=== PATIENT | female | born 1945 | race Caucasian/White ===

== ENCOUNTER → 2016-11-25 | Outpatient (REF) | payer MEDICARE ==
[~2016-11-25] MED LIST: /ADVA50050; /TIOT18INH; ACET65TA; ALBU83IN INH; ALTA10CA; ALTA10CA3 PO; AMBI10TA; AMBI5TAB PO; AMLO5TAB2 PO; ASPI81TA85 PO; ATEN25TA; ATEN50TA2 PO; BONIVA; BUDE0.5S6 INH; CEFT500T; CORE25TA; DEBR6.5S4 AU; DOCU10CA PO; HYDR25TA6; HYDR25TAB PO; K-TA10TA2 PO; LEVA500T PO; LEVO500T32 PO; NICO21DI5 TD; POTA10CA2; PRED10TA PO; PRED20TA PO; PRED20TAB PO; PROZ20CA; PROZ20CA11 PO; PULM1SUS INH; RANI15TA PO; ROBITUSSIN; TUSS1CAP5 PO; TYLE167L PO; ZANT150T; ZITH250T
== END ==
LOC: M SFHCCLAY 13:53
PROVIDERS: ATTEND Family Medicine
DX: H10.32 Unspecified acute conjunctivitis, left eye (principal)

== ENCOUNTER 2017-01-28 13:12 | Inpatient (IN) | payer MEDICARE ==
[~2017-01-28] VITALS: Ht 165.1 cm; Wt 44.5 kg
[2017-01-28] MEDS: NICOTINE 21MG/24HR 1 EA TRANSDERMAL TD SCH (09:00)
[2017-01-28] MEDS ORDERED: HYDR25TAB PO (13:26)
[2017-01-28] MEDS ORDERED: ATEN50TA2 PO (13:26)
[2017-01-28] MEDS ORDERED: FLUO40CA PO (13:26)
[2017-01-28] MEDS ORDERED: IPRATROPIUM 0.5MG/ALBUTEROL 2.5MG INH SOL UD 3ML (DUONEB)(J7620) NEB ONE (14:15)
[2017-01-28] MEDS ORDERED: ASPIRIN 81 MG CHEW TABLET PO ONE ×2 (14:15→15:00)
[2017-01-28] MEDS ORDERED: methylPREDNISolone INJ 125 MG/2 ML VIAL (J2930) IV ONE (14:15)
[2017-01-28] MEDS ORDERED: ALBUTEROL SULFATE 2.5 MG/0.5 ML INH NEB SOLN NEB PRN ×2 (14:15→17:00)
[2017-01-28 14:57] LABS: ABG BASE EXCESS 14.2 (-2.0-2.0); ABG HCO3 43.7 MEQ/L (22.0-26.0); ABG PARTIAL PRESSURE O2 88.1 mmHg (75.0-100.0); ABG TOTAL CO2 46.3 MEQ/L (23.0-31.0); ABG pH (ARTERIAL) 7.325 UNITS (7.350-7.450)
[2017-01-28 14:57] LABS: BASO % 0.5 % (0.0-1.0); EOS # 0.2 K/mm3 (0.0-0.50); EOS % 2.3 % (0.0-3.0); LARGE UNSTAINED CELL # 0.1 K/mm3 (0.0-0.4); LYMPH # 0.8 K/mm3 (1.5-4.5); LYMPH % 7.9 % (24.0-44.0); MEAN CORPUSCULAR HEMOGLOBIN 30.2 pg (27.0-33.0); MEAN CORPUSCULAR HGB CONC 32.5 g/dl (32.0-36.5); MONO # 0.5 K/mm3 (0.0-0.8); MONO % 5.7 % (0.0-5.0); NEUTROPHILS # 7.1 K/mm3 (1.8-7.7); NEUTROPHILS % 82.6 % (36.0-66.0); PLATELET COUNT, AUTOMATED 206 k/mm3 (150-450); RED CELL DISTRIBUTION WIDTH 12.1 % (11.5-14.5); WHITE BLOOD COUNT 8.6 K/mm3 (4.0-10.0)
[2017-01-28 14:59] LABS: ABG PARTIAL PRESSURE CO2 85.8 mmHg (35.0-45.0)
[2017-01-28] MEDS ORDERED: IPRASOL4 INH ×2 (15:04→15:05)
[2017-01-28] MEDS ORDERED: BUDE0.5S6 INH (15:04)
[2017-01-28] MEDS ORDERED: LORA-376 PO (15:05)
[2017-01-28] MEDS ORDERED: ALBU83IN INH (15:05)
[2017-01-28 15:29] LABS: ALBUMIN 3.4 GM/DL (3.2-5.2); ALBUMIN/GLOBULIN RATIO 1.17 (1.00-1.93); ALKALINE PHOSPHATASE 85 U/L (45-117); ALT/SGPT 14 U/L (12-78); ANION GAP 7 MEQ/L (8-16); AST/SGOT 21 U/L (15-37); BILIRUBIN,DIRECT < 0.1 MG/DL (0.0-0.2); BILIRUBIN,TOTAL 0.3 MG/DL (0.2-1.0); BLOOD UREA NITROGEN 14 MG/DL (7-18); CALCIUM LEVEL 8.8 MG/DL (8.8-10.2); CARBON DIOXIDE LEVEL 41 MEQ/L (21-32); CHLORIDE LEVEL 89 MEQ/L (98-107); CREATININE FOR GFR 0.43 MG/DL (0.55-1.02); GLOMERULAR FILTRATION RATE > 60.0 (>39); GLUCOSE, FASTING 147 MG/DL (83-110); POTASSIUM SERUM 3.9 MEQ/L (3.5-5.1); SODIUM LEVEL 137 MEQ/L (136-145); TOTAL PROTEIN 6.3 GM/DL (6.4-8.2)
[2017-01-28] MEDS ORDERED: ALBUTEROL SULFATE 2.5 MG/0.5 ML INH NEB SOLN INH PRN (17:45)
[2017-01-28 19:59] VITALS: BP 142/63
[2017-01-28] MEDS: IPRATROPIUM 0.5MG/ALBUTEROL 2.5MG INH SOL UD 3ML (DUONEB)(J7620) INH SCH ×2 (20:00→20:30)
[2017-01-28] MEDS: IPRATROPIUM 0.5MG/ALBUTEROL 2.5MG INH SOL UD 3ML (DUONEB)(J7620) NEB SCH (20:00)
[2017-01-28] MEDS: BUDESONIDE 0.5 MG/2 ML INHALATION SUSPENSION INH SCH (20:30)
[2017-01-28] MEDS: FAMOTIDINE 20 MG TAB PO SCH (21:00)
[2017-01-28] MEDS: methylPREDNISolone INJ 40 MG/1 ML VIAL (J2920) IV SCH (21:23)
[2017-01-29] VITALS: BP 147/66
[2017-01-29 04:00] VITALS: BP 123/58
[2017-01-29 05:33] LABS: BASO % 0.2 % (0.0-1.0); EOS % 0.1 % (0.0-3.0); LARGE UNSTAINED CELL % 0.7 % (0.0-4.0); LYMPH # 0.5 K/mm3 (1.5-4.5); LYMPH % 7.9 % (24.0-44.0); MEAN CORPUSCULAR HEMOGLOBIN 29.5 pg (27.0-33.0); MEAN CORPUSCULAR HGB CONC 32.2 g/dl (32.0-36.5); MEAN CORPUSCULAR VOLUME 91.5 fl (80.0-96.0); MONO # 0.2 K/mm3 (0.0-0.8); MONO % 3.1 % (0.0-5.0); NEUTROPHILS # 5.1 K/mm3 (1.8-7.7); PLATELET COUNT, AUTOMATED 219 k/mm3 (150-450); RED CELL DISTRIBUTION WIDTH 12.1 % (11.5-14.5); WHITE BLOOD COUNT 5.8 K/mm3 (4.0-10.0)
[2017-01-29 05:53] LABS: ALBUMIN 3.4 GM/DL (3.2-5.2); ALBUMIN/GLOBULIN RATIO 1.06 (1.00-1.93); ALKALINE PHOSPHATASE 84 U/L (45-117); ALT/SGPT 17 U/L (12-78); ANION GAP 7 MEQ/L (8-16); AST/SGOT 18 U/L (15-37); BILIRUBIN,TOTAL 0.3 MG/DL (0.2-1.0); BLOOD UREA NITROGEN 18 MG/DL (7-18); CARBON DIOXIDE LEVEL 41 MEQ/L (21-32); CHLORIDE LEVEL 90 MEQ/L (98-107); CREATININE FOR GFR 0.59 MG/DL (0.55-1.02); GLOMERULAR FILTRATION RATE > 60.0 (>39); GLUCOSE, FASTING 144 MG/DL (83-110); MAGNESIUM LEVEL 1.9 MG/DL (1.8-2.4); POTASSIUM SERUM 3.9 MEQ/L (3.5-5.1); SODIUM LEVEL 138 MEQ/L (136-145); TOTAL PROTEIN 6.6 GM/DL (6.4-8.2)
[2017-01-29] MEDS: IPRATROPIUM 0.5MG/ALBUTEROL 2.5MG INH SOL UD 3ML (DUONEB)(J7620) INH SCH ×4 (06:18→19:41)
--- NOTE | 2017-01-29 06:40 | ECGEPIP ---
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
[2017-01-29] MEDS: BUDESONIDE 0.5 MG/2 ML INHALATION SUSPENSION INH SCH ×2 (06:58→19:41)
[2017-01-29] MEDS: IPRATROPIUM 0.5MG/ALBUTEROL 2.5MG INH SOL UD 3ML (DUONEB)(J7620) NEB SCH ×4 (06:58→20:39)
[2017-01-29 07:52] VITALS: BP 151/87
[2017-01-29] MEDS: ASPIRIN 81 MG ENTERIC TAB PO SCH (08:07)
[2017-01-29] MEDS: FAMOTIDINE 20 MG TAB PO SCH ×2 (08:07→21:22)
[2017-01-29] MEDS: FLUoxetine 20 MG CAP PO SCH (08:07)
[2017-01-29] MEDS: ATENOLOL 50 MG TAB PO SCH (08:07)
[2017-01-29] MEDS: methylPREDNISolone INJ 40 MG/1 ML VIAL (J2920) IV SCH ×3 (08:10→21:22)
[2017-01-29] MEDS: NICOTINE 21MG/24HR 1 EA TRANSDERMAL TD SCH (08:10)
[2017-01-29] MEDS: ENOXAPARIN 40 MG/0.4 ML SYRINGE (J1650) SC SCH (08:10)
--- NOTE | 2017-01-29 08:27 | REP ---
Dyspnea and cough. COMPARISON: 04/06/2016 Fibrotic changes are seen in the lung bases, right greater than left. A patchy opacity partially silhouettes out the right heart border and right CP angle. The cardiomediastinal silhouette is unchanged. It is accentuated by technique. The technique utilized in obtaining the radiograph has magnified the cardiac silhouette and accentuated the interstitial markings. There is no change in the osseous structures. IMPRESSION: Chronic changes are suspected. I cannot rule out the possibility of acute right lower and middle lobe pneumonia superimposed by chronic change. Signed by Davion Perez DO 01/29/2017 10:27 A
--- NOTE | 2017-01-29 08:42 | REP ---
REASON: Status post fall. COMPARISON: 11/01/2009, a contrast-enhanced exam. Limited noncontrast enhanced examination shows abnormal mixed densities throughout the brain parenchyma, both deep white matter and seen in conjunction with a slight shift of the midline structures to the left with marked compression of the frontal horn of the right lateral ventricle due to an abnormal rounded density. IMPRESSION: Metastatic brain disease is suspected with findings as described above. Contrast-enhanced CT is recommended for followup and for better assessment of the suspected metastatic disease. Signed by Davion Perez DO 01/29/2017 10:28 A
--- NOTE | 2017-01-29 08:48 | REP ---
Cough and dyspnea. COMPARISON: 02/11/2013, the latest prior. The lack of intravenous contrast decreases the sensitivity of the exam. The patient has a history of carcinoma of the breast. There is a large right hilar and infrahilar mass which extends anteriorly. This is causing bronchiolar obstruction. Its surface is spiculated. This large mass abuts the right ventricle. It measures approximately 6 x 4 x 3.5 cm. This mass is very difficult to evaluate without intravenous contrast. There is calcific atherosclerotic change seen in the thoracic aorta. There is an aberrant right subclavian artery. The imaged upper abdomen shows numerable focal areas of low density difficult to evaluate without contrast but seemingly unchanged from the prior exam. Bone window technique throughout the exam shows no evidence of significant changes from the prior exam. Evaluation of the lung field shows lung field hyperexpansion, parenchymal bulla, and pleural blebs along with scattered asymmetric densities with increased patchy densities in the right middle lobe which is partially atelectatic. IMPRESSION: 1. There is a large right hilar mass which is causing postobstructive pneumonia to the right middle lobe and consistent with neoplasm as described above. 2. Marked emphysematous changes and chronic fibrotic changes which have increased from the prior exam. 3. Other findings as described above. Signed by Davion Perez DO 01/29/2017 10:28 A
--- NOTE | 2017-01-29 11:24 | HPE ---
DATE OF ADMISSION: 01/28/2017 CHIEF COMPLAINT: Confusion and falls. HISTORY: Patient is a 72-year-old who suffers from chronic obstructive pulmonary disease (COPD) and emphysema has been admitted here in the past for these conditions. Also suffers from depression and has a history of hypertension. She recently began to be increasingly confused and was having episodes of falls at home, so far no injuries. Because of these changes in her behavior, family brought her to the hospital for further evaluation. Upon evaluation the emergency department (ED) with these complaints, CT was done, which showed multiple lesions in her brain suspicious for metastatic disease. She also has a left hilar mass lesion. She denies any current stress and denies any dyspnea, although her oxygen saturation is ranging 93-96% and pH is 7.325 on a arterial blood gas (ABG) with significant CO2 retention with a pCO2 of 88. Her pH is well compensated 7.325. She does not appear to be dyspneic and denies any sense of respiratory distress and wants to go home. PAST MEDICAL HISTORY: She is up-to-date with recommended pneumococcal vaccinations. She has a history of breast cancer, psoriasis. Breast cancer was approximately 16 years ago. History of esophageal reflux. Breast cancer was treated in 2001 by lumpectomy, followed by radiation and associated chemotherapy. Chemotherapy directed by Dr. Hernandez. Patient says radiation therapy was done here, although I can see no evidence of that in [facility]. She had a cholecystectomy in [address] Almonte. The left breast lumpectomy was done in [place] by Dr. Burroughs. Microlaryngoscopy with vocal cord stripping, right greater than left, 2006, Dr. Maynard. FAMILY HISTORY: Positive for cancer in mother and father, and she had one sister who of breast cancer. Patient is a current smoker. No alcohol use. CURRENT MEDICATIONS: Include: - fluoxetine 40 mg daily - potassium chloride 10 mEq three times a day - Zantac 150 mg twice a day - atenolol 50 mg daily - hydrochlorothiazide 12.5 mg daily - aspirin 81 mg daily - ramipril 10 mg daily - amlodipine 5 mg daily - zolpidem 10 mg at nightly as needed, sleep - Nicoderm patch as needed (Although, she has been smoking lately so she is not currently using the patch) - albuterol nebulizers - ipratropium nebulizers - lorazepam 0.5 mg twice a day as needed, anxiety - budesonide 0.5 mg twice a day nebulizers REVIEW OF SYSTEMS: She denies headache, dizziness, nausea. At this time, she in her usual state with respect to her breathing. She denies nausea, abdominal pain, constipation. No musculoskeletal discomfort. PHYSICAL EXAMINATION: Slender, alert, pleasant, mildly confused woman in no acute distress. Temperature 96.7, pulse 74, blood pressure 117/59, respiratory rate 20, oxygen saturation 93%. Normocephalic, atraumatic. Pupils equal. Speech is normal. She is alert, cooperative, although intermittently confused about recent events. Denies current pain. Oropharynx unremarkable. No neck mass palpable. Lungs: Diminished breath sounds throughout with no wheezing, rales or rhonchi heard. Heart: Regular rhythm. No murmur noted. Abdomen: Flat, soft, nontender. No guarding. No mass. No rebound. No adenopathy is detected. Extremities: Show no pedal edema. Pulses are palpable at posterior tibial bilaterally. Neurologic: She moves all extremities well. There is no facial asymmetry. Mildly confused but overall cooperative. Confusion seems to be related to memory and details of such. She reaffirms DO NOT RESUSCITATE in the presence of her family. Although the discussion of intubation was felt to be somewhat too complex at this time for the patient to understand and it was deferred to another opportunity. Laboratory showing hemoglobin 11.6, left shift with 82.6% segmented neutrophils. Chemistry: Sodium 137, potassium 3.9, chloride 89, CO2 41, which is up from her most recent previous, which is 39. Glucose 147. Liver enzymes normal. BNP 141. Albumin 3.4. ABG: pH 7.325, pCO2 85.8, pO2 88. This pCO2 is higher than what was previously demonstrated. Most recent previous was done in March of 2016; pH 7.404, pCO2 of 58.9, pO2 was 181.4 at that time. Obviously receiving excess oxygen via nasal cannula. IMAGING STUDIES: Head CT shows multiple lesions, round densities and one lucent area . Detailed report from radiologist not available at this time. Chest x-ray shows emphysematous changes. CT of her chest shows what looks to be a left hilar mass. 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 CT consistent with a left hilar mass. She does have a history of breast cancer in 2002, but she has had no evidence of metastatic disease until this time and so unlikely that this represents late appearing breast mass and more likely to represent new pulmonary neoplasm. PLAN: She will be admitted. MR of the brain will be obtained. We will enhance her respiratory therapy somewhat, but oxygen delivery will be corrected partially to help improve ventilation and reduce CO2 retention. Dr. Levy has been consulted from pulmonary service and requested that she see her tomorrow. Made aware of her presence in hospital. She will be DO NOT RESUSCITATE by her request and admitted to progressive care unit (PCU). Prognosis is guarded. Briefly reviewed the prospects if her respiratory status worsened of intubation and in the context of metastatic disease in brain I think ventilatory support and intubation would be not advised. The official documentation in the life-sustaining treatment (MOLST) form will be completed after the family has had a chance to digest the information, and hopefully this will occur within the 24 hours. Considering the severity of underlying lung disease, it is not clear that she would be a candidate for any new therapeutic intervention directed toward potential lung and brain neoplasms brain radiation might be tolerable, however and will seek consultation from radiation oncology once tissue diagnosis can be confirmed. Another possibly would be to look for hospice and palliative care through hospice service, which I think would be a reasonable option for this patient considering her advanced pulmonary disease and apparent stage IV cancer. OKSANA
[2017-01-29 12:10] VITALS: BP 134/63
--- NOTE | 2017-01-29 12:35 | IPNPDOC ---
Subjective Date Seen The patient was seen on 01/29/17. Subjective Chief Complaint/HPI Pt c/o SOB, some cough, also notes that for 2-3 w she has had nearly daily HAs, some relief with Tylenol or sleep. General: Reports: Fatigue Constitutional: Denies: Chills, Fever ENT: Reports: Head Aches Pulmonary: Reports: Cough, Dyspnea Cardiovascular: Denies: Chest Pain, Palpitations Gastrointestinal: Denies: Diarrhea, Nausea, Vomiting Neurological: Reports: Weakness Psych: Reports: Mood Normal Objective Physical Examination General Exam: Positive: Alert, No Acute Distress ENT Exam: Positive: Mucous membr. moist/pink Chest Exam: Positive: Diminished Heart Exam: Positive: Normal S1, Normal S2, Rate Normal Abdomen Exam: Positive: Normal bowel sounds, Soft, Negative: Tenderness Extremity Exam: Negative: Edema Assessment /Plan Problems (1) Confusion Status: Acute Problem Text: Pt was brought to the hospital bc of falls and periods of confusion at home. CT brain revealed suspected metastatic disease. (2) Falls Status: Acute (3) Mass of lung Status: Acute Discussed With: Patient Problem Specific Plan: Consult Specialist, Monitor Clinically Problem Text: Pt is aware that she has a mass to her lung. I have spoken with Dr Levy who plans to see the pt probably Monday to assess options for management. 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 (5) COPD (chronic obstructive pulmonary disease) Status: Chronic Problem Text: On duonebs, Solumedrol 40 mg IV q8, started on admission. Plan/VTE VTE Prophylaxis Ordered?: Yes VS, I&O, 24H, [place] Vital Signs/I&O Vital Signs Date Time Temp Pulse Resp B/P Pulse Ox O2 Delivery O2 Flow Rate FiO2 01/29/17 08:07 79 151/87 01/29/17 08:00 Nasal Cannula 2.0 01/29/17 07:52 96.6 18 94 I&O- Last 24 Hours up to 6 AM 01/29/17 06:00 Intake Total 225 ml Output Total 200 ml Balance 25 ml Laboratory Data 24H LABS Laboratory Tests 2 01/28/17 14:46: White Blood Count 8.6, Red Blood Count 3.85L, Hemoglobin 11.6L, Hematocrit 35.8L , Mean Corpuscular Volume 93.0, Mean Corpuscular Hemoglobin 30.2, Mean Corpuscular Hemoglobin Concent 32.5, Red Cell Distribution Width 12.1, Platelet Count 206, Neutrophils (%) (Auto) 82.6H, Lymphocytes (%) (Auto) 7.9L, Monocytes (%) (Auto) 5.7H, Eosinophils (%) (Auto) 2.3, Basophils (%) (Auto) 0.5, Neutrophils # (Auto) 7.1, Lymphocytes # (Auto) 0.8L, Monocytes # (Auto) 0.5, Eosinophils # (Auto) 0.2, Basophils # (Auto) 0.0, Large Unclassified Cells # 0.1 , Large Unclassified Cells % 1.0 01/28/17 14:47: Aspartate Amino Transf (AST/SGOT) 21, Alanine Aminotransferase (ALT/SGPT) 14, Alkaline Phosphatase 85, Total Bilirubin 0.3, Direct Bilirubin < 0.1, Albumin 3.4, Albumin/Globulin Ratio 1.17, Anion Gap 7L, B-Type Natriuretic Peptide 141H , Calcium Level 8.8, Creatine Kinase MB 1.6, Creatine Kinase MB Relative Index 3.01, Glomerular Filtration Rate > 60.0, Total Creatine Kinase 53, Total Protein 6.3L, Troponin I < 0.02 01/28/17 14:53: Arterial Blood pH 7.325L, Arterial Blood Partial Pressure CO2 85.8*H, Arterial Blood Partial Pressure O2 88.1, Arterial Blood Total CO2 46.3H, Arterial Blood HCO3 43.7H, Arterial Blood Base Excess 14.2H, Arterial Blood Oxygen Saturation 96.3, Blood Gas Bicarbonate Standard 38.0H 01/29/17 05:03: White Blood Count 5.8, Red Blood Count 3.97L, Hemoglobin 11.7L, Hematocrit 36.3 , Mean Corpuscular Volume 91.5, Mean Corpuscular Hemoglobin 29.5, Mean Corpuscular Hemoglobin Concent 32.2, Red Cell Distribution Width 12.1, Platelet Count 219, Neutrophils (%) (Auto) 88.0H, Lymphocytes (%) (Auto) 7.9L, Monocytes (%) (Auto) 3.1, Eosinophils (%) (Auto) 0.1, Basophils (%) (Auto) 0.2, Neutrophils # (Auto) 5.1, Lymphocytes # (Auto) 0.5L, Monocytes # (Auto) 0.2, Eosinophils # (Auto) 0.0, Basophils # (Auto) 0.0, Large Unclassified Cells # 0.0 , Large Unclassified Cells % 0.7, Aspartate Amino Transf (AST/SGOT) 18, Alanine Aminotransferase (ALT/SGPT) 17, Alkaline Phosphatase 84, Total Bilirubin 0.3, Albumin 3.4, Albumin/Globulin Ratio 1.06, Anion Gap 7L, Calcium Level 9.0, Glomerular Filtration Rate > 60.0, Total Protein 6.6, Blood Urea Nitrogen 18, Creatinine 0.59, Sodium Level 138, Potassium Level 3.9, Chloride Level 90L, Carbon Dioxide Level 41H, Magnesium Level 1.9 CBC/BMP Laboratory Tests 01/28/17 14:46 Red Blood Count 3.85 L, Mean Corpuscular Volume 93.0, Mean Corpuscular Hemoglobin 30.2, Mean Corpuscular Hemoglobin Concent 32.5, Red Cell Distribution Width 12.1, Neutrophils (%) (Auto) 82.6 H, Lymphocytes (%) (Auto) 7.9 L, Monocytes (%) (Auto) 5.7 H, Eosinophils (%) (Auto) 2.3, Basophils (%) ( Auto) 0.5, Neutrophils # (Auto) 7.1, Lymphocytes # (Auto) 0.8 L, Monocytes # ( Auto) 0.5, Eosinophils # (Auto) 0.2, Basophils # (Auto) 0.0 01/28/17 14:47 01/29/17 05:03 Red Blood Count 3.97 L, Mean Corpuscular Volume 91.5, Mean Corpuscular Hemoglobin 29.5, Mean Corpuscular Hemoglobin Concent 32.2, Red Cell Distribution Width 12.1, Neutrophils (%) (Auto) 88.0 H, Lymphocytes (%) (Auto) 7.9 L, Monocytes (%) (Auto) 3.1, Eosinophils (%) (Auto) 0.1, Basophils (%) (Auto ) 0.2, Neutrophils # (Auto) 5.1, Lymphocytes # (Auto) 0.5 L, Monocytes # (Auto) 0.2, Eosinophils # (Auto) 0.0, Basophils # (Auto) 0.0, Calcium Level 9.0, Aspartate Amino Transf (AST/SGOT) 18, Alanine Aminotransferase (ALT/SGPT) 17, Alkaline Phosphatase 84, Total Bilirubin 0.3, Total Protein 6.6, Albumin 3.4 Microbiology Microbiology 01/28/17 Blood Culture, Received Pending LAURITA SALMERON PA-C Jan 29, 2017 12:35
[2017-01-29] MEDS ORDERED: oxyCODONE 5MG TAB PO PRN ×2 (15:15)
[2017-01-29 16:00] VITALS: BP 126/60
[2017-01-29 20:00] VITALS: BP 133/62
[2017-01-30] VITALS: BP 135/64
[2017-01-30] MEDS ORDERED: SLF 3 ML SYR IV PRN (02:15)
[2017-01-30] MEDS: ACETAMINOPHEN TAB 650MG DOSE (2X325MG) PO PRN (03:11)
[2017-01-30 04:00] VITALS: BP 168/64
[2017-01-30 05:14] VITALS: BP 122/62
[2017-01-30] MEDS: SLF 3 ML SYR IV SCH ×3 (05:15→21:11)
[2017-01-30] MEDS: BUDESONIDE 0.5 MG/2 ML INHALATION SUSPENSION INH SCH ×2 (07:29→20:57)
[2017-01-30] MEDS: IPRATROPIUM 0.5MG/ALBUTEROL 2.5MG INH SOL UD 3ML (DUONEB)(J7620) INH SCH ×4 (07:29→20:57)
[2017-01-30 08:00] VITALS: BP 140/64
[2017-01-30] MEDS: IPRATROPIUM 0.5MG/ALBUTEROL 2.5MG INH SOL UD 3ML (DUONEB)(J7620) NEB SCH ×3 (08:00→15:48)
[2017-01-30] MEDS: ENOXAPARIN 40 MG/0.4 ML SYRINGE (J1650) SC SCH (09:02)
[2017-01-30] MEDS: methylPREDNISolone INJ 40 MG/1 ML VIAL (J2920) IV SCH ×3 (09:02→21:10)
[2017-01-30] MEDS: NICOTINE 21MG/24HR 1 EA TRANSDERMAL TD SCH (09:02)
[2017-01-30] MEDS: FAMOTIDINE 20 MG TAB PO SCH ×2 (09:03→21:11)
[2017-01-30] MEDS: FLUoxetine 20 MG CAP PO SCH (09:03)
[2017-01-30] MEDS: ASPIRIN 81 MG ENTERIC TAB PO SCH (09:03)
[2017-01-30] MEDS: ATENOLOL 50 MG TAB PO SCH (09:03)
--- NOTE | 2017-01-30 11:36 | IPNPDOC ---
Subjective Date Seen The patient was seen on 01/30/17. Subjective Chief Complaint/HPI The patient is a 72-year-old female admitted with a reason for visit of COPD. Events since last encounter Family advised of results with Pulmonology. Patient and family opted for hospice care. Declines intervention. Constitutional: Denies: Chills, Fever, Night Sweats Skin: Denies: Breakdown, Lesions, Rash Pulmonary: Reports: Cough, Dyspnea Cardiovascular: Denies: Chest Pain, Lt Headedness, Orthopnea, Palpitations, Paroxysmal Noc. Dyspnea Gastrointestinal: Denies: Abdominal Pain, Constipation, Diarrhea, Nausea, Vomiting Neurological: Reports: Change in speech, Confusion Objective Physical Examination General Exam: Positive: Alert, No Acute Distress ENT Exam: Positive: Mucous membr. moist/pink Chest Exam: Positive: Diminished Heart Exam: Positive: Normal S1, Normal S2, Rate Normal Abdomen Exam: Positive: Normal bowel sounds, Soft, Negative: Tenderness Extremity Exam: Negative: Edema Psych Exam: Positive: Anxiety Assessment /Plan Problems (1) Confusion Status: Acute Problem Text: 01/30: secondary to brain mets. family opting for Hospice. Pt was brought to the hospital bc of falls and periods of confusion at home. CT brain revealed suspected metastatic disease. (2) Falls Status: Acute (3) Mass of lung Status: Acute Discussed With: Patient Problem Specific Plan: Consult Specialist, Monitor Clinically Problem Text: 01/30/17: Consultation completed. Family and patient opting for hospice consult. Consult placed. Pt is aware that she has a mass to her lung. I have spoken with Dr Levy who plans to see the pt probably Monday to assess options for management. 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 (5) COPD (chronic obstructive pulmonary disease) Status: Chronic Problem Text: On duonebs, Solumedrol 40 mg IV q8, started on admission. Plan/VTE VTE Prophylaxis Ordered?: Yes VS, I&O, 24H, Fishbone Vital Signs/I&O Vital Signs Date Time Temp Pulse Resp B/P Pulse Ox O2 Delivery O2 Flow Rate FiO2 01/30/17 09:03 77 122/62 01/30/17 08:00 96.4 18 97 Nasal Cannula 2.0 I&O- Last 24 Hours up to 6 AM 01/30/17 06:00 Intake Total 1160 ml Output Total 200 ml Balance 960 ml Laboratory Data Microbiology Microbiology 01/28/17 Blood Culture - Preliminary, Resulted No growth after 24 hours . All specim... Merly Mendez [facility] Jan 30, 2017 11:36
--- NOTE | 2017-01-30 13:15 | CR ---
DATE OF CONSULTATION: 01/30/[address] HELLER REASON FOR CONSULT: Hilar mass. Chronic obstructive pulmonary disease (COPD). PRIMARY CARE PHYSICIAN: Dr. Heller HISTORY OF PRESENT ILLNESS: Ms. Ashton is a 72-year-old female with multiple past medical history including emphysema and COPD who is on 2.5 liters of nasal cannula 24 hours. The patient was brought to the emergency room (ER) due to confusion and two episodes of falls on the day of admission. At the time of admission, the patient had CT of the chest which shows large right hilar mass and marked emphysematous changes and chronic fibrotic changes. The patient also had CT of the head without contrast which showed metastatic brain disease. Today, patient expressed that she is still feeling dyspnea which is not changed compared to the time that she had been compared to the admission date. The patient expressed that at her baseline she can walk the hallway of her house which is about 40 feet before she would become out of breath. The patient has been having cough for a long time. However, sometimes it becomes productive cough with phlegm, especially when she develops bronchopneumonia. She expressed that for the past 7 years she has been having bronchopneumonia every year. The patient denies fever, chills, or night sweats. At this time, the patient expressed that she is at her baseline. The patient did not have history of deep vein thrombosis (DVT). Patient has been diagnosis with GERD and has postnasal drip. At the time of admission, the patient had an ABG done which showed metabolic acidemia. The patient has not had recent sick contact with anybody. CURRENT MEDICATIONS: - Tylenol 650 mg every 6 hours as needed by mouth for pain or fever - oxycodone HCL 5 mg every 6 hours as needed by mouth for pain - oxycodone 10 mg every 6 hours as needed for severe pain - Lovenox 40 mg daily subcutaneous - Prozac 40 mg daily by mouth - aspirin 81 mg daily by mouth - atenolol 50 mg daily by mouth - Solu-Medrol 40 mg three times a day IV - famotidine 20 mg twice a day by mouth - DuoNeb 3 mL RQID four times a day - DuoNeb 3 mL RQID INH - budesonide 0.5 mg RBID INH - albuterol 2.5 mg every 2 hours as needed for dyspnea - nicotine one patch daily transdermal PAST MEDICAL HISTORY: 1. Several episodes of bronchopneumonia for the past seven years. 2. Breast cancer. 3. Psoriasis. PAST SURGICAL HISTORY: 1. Cholecystectomy which was done in [address] Almonte. 2. Microlaryngoscopy with vocal cord stripping, right greater than the left, in 2006, performed by Dr. Maynard. 3. Lumpectomy in 2001, followed by radiation and associated chemotherapy. SOCIAL HISTORY: The patient denies illicit drug use. The patient denies alcohol usage; however, patient expressed that she has started smoking since she was 13 years old, about a pack a day; however, recently she only smokes about 2- 3 cigarettes per day. 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 The patient has two sons and three daughters who are healthy for their age. The patient has not traveled outside of [place] and patient did not have any travel to deserts. The patient has not had contact with tuberculosis (TB). FAMILY HISTORY: Patient in total has one brother and two sisters. One of her sisters due to having breast cancer. REVIEW OF SYSTEMS: GENERAL: Patient denies fever, chills, night sweats, weight loss, weight gain. HEENT: Patient expressed that sometimes she has headache and lightheadedness; however, patient denies problem with chewing food or acute vision or hearing changes. NECK: Patient denies lumps, bumps or decreased range of motion of her neck. HEART: Patient denies palpitations, racing or skipping heart beat or chest pain. LUNGS: Patient has chronic cough which sometimes produces sputum when she has bronchopneumonia. The patient wears oxygen 2.5 liters 24 hours a day for the past 7 years. The patient always believed that she has shortness of breath. ABDOMEN: The patient has no abdominal pain, nausea or vomiting, diarrhea or constipation, melena, hematochezia or hematemesis. NEUROLOGIC: Patient denies history of transient ischemic attack (TIA), seizure, or seizure-type activities. PHYSICAL EXAMINATION: VITAL SIGNS: Temperature 96.4, pulse 76, respiratory rate 18, blood pressure 140/64, and pulse oximetry 97% on 2 liters nasal cannula. HEENT: Normocephalic, atraumatic. Pupils are equal. Oral mucosa is moist. NECK: Soft. Supple. No JVD, lymphadenopathy or thyromegaly. HEART: Regular rate and rhythm. Normal S1, S2. ABDOMEN: Soft. Nontender. Positive bowel sounds in all quadrants. CHEST: AP diameter increased. lung symmetrical excursion. Patient uses accessory muscles more on inhale than exhale. Hyperresonance to percussion. LUNGS: Patient has diminished breath sounds on the base of the lung. However, no wheezing, rales or rhonchi were noticed. EXTREMITIES: No lower extremity edema. +2 pulses in both lower extremities. The patient has normal range of motion in both upper and lower extremities. NEUROLOGIC: Cranial nerves II-XII intact. No focal deficiencies. LABORATORY DATA: Sodium 138, potassium 3.9, chloride 90, carbon dioxide 41, anion gap 7, BUN 18, creatinine 0.59, glomerular filtration rate more than 60, fasting glucose 144, calcium 9, magnesium 1.9, total bilirubin 0.3, AST 18, ALT 17, alkaline phosphatase 84, total protein 6.6 and albumin 3.4. White blood cells 5.8, red blood cells 3.97, hemoglobin 11.7, hematocrit 36.3, MCV 91.5, MCH 29.5, MCHC 32.2, RDW 12.1, platelet count 219, neutrophil percentage 88, lymphocyte percentage 7.9, monocyte percentage 3.1, eosinophil percentage 0.1, basophil percentage 0.2, leukocyte percentage 0.7. Blood culture was negative. IMAGING STUDIES: Portable chest x-ray which was done on 01/28/2017 shows chronic changes. Chest x-ray shows a large right hilar mass which is possibly causing post obstruction. The patient also has segmental atelectasis versus pneumonic infiltration as well as having marked emphysematous changes, and chronic fibrotic changes which have increased from the previous exam. Head CT without contrast shows metastatic brain disease possibility based on the findings on the CT. ASSESSMENT AND PLAN: 1. Abnormal chest x-ray/CT which is indicative of the large right hilar mass which is possibly causing post obstructive. This is possibly malignancy and it is highly unlikely for infectious. Patient also had a CT of the brain which showed possible metastases. Dr. Levy has an extended conversation with the patient and the patient's family regarding comorbidity of patient's disease as well as different possibilities including bronchoscopy and chemotherapy; however , patient and patient's family expressed that they would like to think about these possibilities. Also, Dr. Levy spoke with them regarding possibility of hospice care. Regarding bronchoscopy, adverse effects and risk of bleeding was explained to the patient in details. Also, it was discussed with the patient that unfortunately there is no surgical procedure that can be offered at this time. Patient and her family expressed that they will think about these options and will let us know soon. 2. Brain metastases. CT of the brain shows that patient has brain lesions. Dr. Heller explained the possibility of MRI; however, it is pending at this time. 3. Chronic obstructive pulmonary disease. At this time, the patient is on breathing treatment and Solu-Medrol. We will continue with the current medications. 4. Tobacco usage. The patient is on Nicoderm CQ 21 one patch daily. 5. Gastroesophageal reflux disease. Patient is on Pepcid 20 mg twice a day by mouth. My preceptor for this patient encounter was Dr. Levy. The preceptor was physically present in the building during the encounter and was fully available. As needed, all aspects of the patient interview, examination, medical decision making process, and medical care plan development were reviewed and approved by the preceptor. The preceptor is aware and concurs with the plan as stated in the body of this note and will attest to such by his/her cosignature. OKSANA
[2017-01-31] MEDS: SLF 3 ML SYR IV SCH (05:28)
[2017-01-31] MEDS: BUDESONIDE 0.5 MG/2 ML INHALATION SUSPENSION INH SCH (07:10)
[2017-01-31] MEDS: IPRATROPIUM 0.5MG/ALBUTEROL 2.5MG INH SOL UD 3ML (DUONEB)(J7620) INH SCH ×2 (07:10→10:21)
[2017-01-31 07:13] LABS: MEAN CORPUSCULAR HEMOGLOBIN 30.5 pg (27.0-33.0); MEAN CORPUSCULAR HGB CONC 33.1 g/dl (32.0-36.5); MEAN CORPUSCULAR VOLUME 92.3 fl (80.0-96.0); RED CELL DISTRIBUTION WIDTH 12.6 % (11.5-14.5); WHITE BLOOD COUNT 13.4 K/mm3 (4.0-10.0)
[2017-01-31] MEDS ORDERED: LORA-376 PO (07:23)
[2017-01-31] MEDS ORDERED: TRAN1.5D2 TOP (07:23)
[2017-01-31] MEDS ORDERED: MORP20SO PO (07:23)
[2017-01-31] MEDS ORDERED: PRED20TA PO (07:33)
[2017-01-31] MEDS ORDERED: NICO21PAT TD (08:22)
[2017-01-31] MEDS ORDERED: MORP1SOL PO (08:46)
[2017-01-31] MEDS: ENOXAPARIN 40 MG/0.4 ML SYRINGE (J1650) SC SCH (08:53)
[2017-01-31] MEDS: FLUoxetine 20 MG CAP PO SCH (08:53)
[2017-01-31] MEDS: FAMOTIDINE 20 MG TAB PO SCH (08:53)
[2017-01-31] MEDS: ASPIRIN 81 MG ENTERIC TAB PO SCH (08:53)
[2017-01-31 08:54] VITALS: BP 122/62
[2017-01-31] MEDS: ATENOLOL 50 MG TAB PO SCH (08:54)
[2017-01-31] MEDS: methylPREDNISolone INJ 40 MG/1 ML VIAL (J2920) IV SCH (08:54)
[2017-01-31] MEDS: NICOTINE 21MG/24HR 1 EA TRANSDERMAL TD SCH (08:54)
[2017-01-31] MEDS: ACETAMINOPHEN TAB 650MG DOSE (2X325MG) PO PRN (09:50)
--- NOTE | 2017-01-31 12:12 | DSES ---
DATE OF ADMISSION: 01/28/2017 DATE OF DISCHARGE: 01/31/2017 PRIMARY CARE PROVIDER: Dr. Paco Chew. ATTENDING PHYSICIAN: Dr. Paco Chew. HISTORY OF PRESENT ILLNESS: 72-year-old female with past medical history significant for chronic obstructive pulmonary disease (COPD) with emphysema, history of depression and hypertension, had recently had some increasing confusion with episodes of falls at home secondary to changes in behavior. Family brought patient to the emergency room for further evaluation. Workup showed significant lesions to the brain suspicious for metastatic disease. Further workup demonstrated large right hilar mass causing postobstructive pneumonia to the right middle lobe consistent with neoplasm, marked emphysematous changes and chronic fibrotic changes which had increased from the prior exam. Patient was subsequently admitted. Pulmonology was consulted and evaluated the patient on 01/30. After evaluation and discussion with pulmonology and myself, family and patient have opted for hospice care. Hospice consult was placed yesterday and patient is anticipating going home early this morning. Patient's oxygenation has been maintained in 90% range on 2 liters nasal cannula. She has been receiving nebulizers throughout her hospital stay which has assisted with her breathing symptoms. She has been receiving Solu-Medrol 40 mg three times daily IV with some stated relief. PHYSICAL EXAMINATION: Patient is resting comfortably with daughter at bedside. ASSESSMENT: 1. Perihilar mass with postobstructive pneumonia with metastatic disease to the brain. 2. Chronic obstructive pulmonary disease (COPD) with significant emphysematous changes. 3. Depression. 4. Hypertension. PLAN: Patient will be discharged home under the care of hospice. MEDICATIONS ARE FOLLOWS: - lorazepam 0.5 mg every 2 hours as needed anxiety and agitation - morphine sulfate 20 mg per 5 mL, she may have 1 mL every 12 hours as needed for pain or dyspnea - prednisone 20 mg daily for the next 5 days - scopolamine 1.5 mg patch every 72 hours #10 given CONTINUED MEDICATIONS INCLUDE: - albuterol nebulizer every 2 hours as needed for shortness of breath - DuoNebs every 6 hours - atenolol 50 mg daily - budesonide one inhalation twice daily - fluoxetine 40 mg by mouth daily Patient is discharged in stable condition with her family. Medical orders for life sustaining treatment ([facility]) form is in chart and is up to date as of yesterday. Patient will follow with primary care physician as needed. Activity is as tolerated. Diet is as tolerated.
[2017-01-31 13:09] LABS: CARCINOEMBRYONIC ANTIGEN 1430.3 NG/ML (<2.5)
== END 2017-01-31 10:30 | disposition hospice, home (50) | DRG 54 ==
LOC: EDBD 13:12 → M ED 14:26 → M ED INP 16:45 → M PCU 18:50 → M MS5PR 01-30 18:48
PROVIDERS: ADMIT Family Medicine; ATTEND Family Medicine
DX: C79.31 Secondary malignant neoplasm of brain (principal); J18.9 Pneumonia, unspecified organism; J44.9 Chronic obstructive pulmonary disease, unspecified; F32.9 Major depressive disorder, single episode, unspecified; I10 Essential (primary) hypertension; L40.9 Psoriasis, unspecified; R91.8 Other nonspecific abnormal finding of lung field; Z85.3 Personal history of malignant neoplasm of breast; F17.210 Nicotine dependence, cigarettes, uncomplicated; Z66 Do not resuscitate; Z92.3 Personal history of irradiation; Z92.21 Personal history of antineoplastic chemotherapy; K21.9 Gastro-esophageal reflux disease without esophagitis; Z99.81 Dependence on supplemental oxygen; Z79.82 Long term (current) use of aspirin; Z79.899 Other long term (current) drug therapy